=== PATIENT | female | born 1995 | race Caucasian/White ===

== ENCOUNTER 2017-09-04 16:47 | Emergency (ER) | payer OTHER ==
[~2017-09-04] VITALS: Ht 170.2 cm; Wt 65.8 kg
[2017-09-04 16:58] VITALS: BP_SYST 151
== END 2017-09-04 17:53 | disposition left against medical advice (07) ==
LOC: SED 16:47
DX: F10.129 Alcohol abuse with intoxication, unspecified (principal); R11.0 Nausea; R50.9 Fever, unspecified; Z53.21 Procedure and treatment not carried out due to patient leaving prior to being seen by health care provider

== ENCOUNTER 2021-01-26 11:23 | Emergency (ER) | payer BC, OTHER ==
[~2021-01-26] VITALS: Ht 170.2 cm; Wt 72.6 kg
[2021-01-26 11:30] VITALS: BP_SYST 138
--- NOTE | 2021-01-26 11:30 | NUR ---
PT TO REMAIN IN TRIAGE FOR EVALUATION.
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
--- NOTE | 2021-01-26 11:40 | NUR ---
DR. RAMIREZ TO TRIAGE FOR EVALUATION.
[2021-01-26] MEDS ORDERED: HYDR-3917 PO (11:41)
[2021-01-26] MEDS ORDERED: IBUP-1969 PO (11:41)
[2021-01-26] MEDS ORDERED: SILVER SULFADIAZINE 1%, 25 GM TOPICAL CREAM (SSD) TP ONE (11:45)
[2021-01-26] MEDS ORDERED: HYDROcodone/ACETAMIN 5-325 MG TAB (NORCO/ VICODIN) PO ONE (11:45)
[2021-01-26] MEDS ORDERED: IBUPROFEN 800 MG TABLET PO ONE (11:45)
--- NOTE | 2021-01-26 11:45 | NUR ---
RIGHT ARM cleansed with NORMAL SALINE AND BURN OINTMENT. Dressing applied. Tetanus vaccination current.
--- NOTE | 2021-01-26 12:00 | NUR ---
Patient given written and verbal discharge instructions and verbalizes understanding. DR. JAMES RASCON MD discussed with patient the results and treatment provided. Patient in stable condition. ID arm band removed. Rx PER MD. Patient educated on pain management and to follow up with PMD. Pain Scale 0/10. Opportunity for questions provided and answered. Medication side effect fact sheet provided.
== END 2021-01-26 12:00 | disposition home or self-care (01) ==
LOC: SED 11:23
DX: T22.221A Burn of second degree of right elbow, initial encounter (principal); X08.8XXA Exposure to other specified smoke, fire and flames, initial encounter; Y93.89 Activity, other specified; Y92.89 Other specified places as the place of occurrence of the external cause; Y99.8 Other external cause status
CPT/HCPCS: 99283